=== PATIENT | female | born 1955 | race Caucasian/White ===

== ENCOUNTER → 2024-04-21 | Day surgery (SDC) | payer MEDICARE ==
[~2024-04-21] MED LIST: ACETAMINOPHEN 1000 MG/100 ML IV ONE; ASPIRIN81 MG PO; CRESTOR10 MG PO; DEXAMETHASONE SOD PHOS INJ 4 MG/ML SDV ONE; DEXMEDETOMIDINE HCL 200 MCG/2 ML VIAL ONE; DOXYCYCLINE HY100 MG PO; EPINEPHRINE HCL 1:1000 1ML 1 MG/ML AMP ONE; FARXIGA10 MG PO; FENTANYL CITRATE/PF 100MCG/2 ML INJ ONE; GEMTESA75 MG PO; GLYCOPYRROLATE INJ 0.2 MG/ML VIAL ONE; HYDROCODONE BIT/ACETAMINOPHEN 2.5 MG/108MG PER 5 ML SOLUTION ONE; HYDROXYZIN10 MG/5 ML PO; LIDOCAINE 1% W/EPINEPHRINE 20 ML VIAL ONE; LIDOCAINE HCL 2% LOCAL INJ 5 ML SDV VIAL INJ ONE; MACUHEALTH; MAGNESIUM CITR100 M1; MELATONIN3 MG PO; METFORMIN HCL850 MG PO; METOPROLOL SUCC25 MG PO; MONTELUKAST SOD10 MG PO; NEOSTIGMINE 1 MG/ML 10ML VIAL ONE; OMEPRAZOLE40 MG PO; ONDANSETRON HCL INJ 2MG/ML 2ML 2 MG/ML VIAL ONE; OXYMETAZOLINE HCL 0.05% NAS 1 SPRAY BTL ONE; PRENATAL 19 TA1 EAC2; PROPOFOL IV EMULSION 10 MG/ML 20 ML VIAL ONE; ROCURONIUM BROMIDE 10 MG/ML 5ML VIAL IV ONE; SERTRALINE HCL50 MG PO; SEVOFLURANE INHAL SOLN 250 ML PEN BTL ONE; STRATTERA40 MG PO; TRESIBA FL100 UNIT/1; TRULICITY3 MG/0.5 M; XARELTO20 MG PO
[2024-04-21] MEDS: LACTATED RINGER'S 1,000 ML ONE (07:07)
[2024-04-21 09:12] VITALS: TEMP 97.1
[2024-04-21] MEDS: HYDROCODONE BIT/ACETAMINOPHEN 2.5 MG/108MG PER 5 ML SOLUTION PO ONE (09:38)
[2024-04-21 10:20] VITALS: BP 134/71; PULSE 67; RESP 16; O2SAT 95
== END | disposition home or self-care (01) ==
LOC: OR 06:29
PROVIDERS: ATTEND Otolaryngology Otolaryngology/Facial Plastic Surgery
DX: K14.8 Other diseases of tongue (principal); J32.9 Chronic sinusitis, unspecified; G47.33 Obstructive sleep apnea (adult) (pediatric); E11.9 Type 2 diabetes mellitus without complications; I10 Essential (primary) hypertension; E78.5 Hyperlipidemia, unspecified; F98.8 Other specified behavioral and emotional disorders with onset usually occurring in childhood and adolescence; F41.9 Anxiety disorder, unspecified; F32.A Depression, unspecified; D64.9 Anemia, unspecified; Z88.2 Allergy status to sulfonamides; Z88.8 Allergy status to other drugs, medicaments and biological substances; Z79.82 Long term (current) use of aspirin; Z79.84 Long term (current) use of oral hypoglycemic drugs; Z79.85 Long-term (current) use of injectable non-insulin antidiabetic drugs; Z79.4 Long term (current) use of insulin; Z79.02 Long term (current) use of antithrombotics/antiplatelets; Z79.899 Other long term (current) drug therapy; Z86.718 Personal history of other venous thrombosis and embolism
CPT/HCPCS: 31526; 31622; 41112; 43191; 87071; 87075; 87102; 87205; 87206; 88305; 93005; J0131; J1100; J2001; J2405; J2704; J2710; J3010; J7121; J0171; J2003